=== PATIENT | male | born 1965 | race African-American/Black ===

== ENCOUNTER 2018-01-30 12:10 | Emergency (ER) | payer MEDICAID ==
[2018-01-30] MEDS: DIPHTH,PERTUSS(ACELL),TET TOX 0.5 ML DISP.SYRIN. VAX IM (14:00)
[2018-01-30] MEDS: LIDOCAINE WITH 8.4% SOD BICARB 3 ML DISP.SYRIN. INJ (14:00)
== END 2018-01-30 15:23 | disposition home or self-care (01) ==
LOC: ER 12:10
DX: S61.213A Laceration without foreign body of left middle finger without damage to nail, initial encounter (principal); W45.8XXA Other foreign body or object entering through skin, initial encounter; Y93.89 Activity, other specified; Y99.8 Other external cause status; Y92.89 Other specified places as the place of occurrence of the external cause
CPT/HCPCS: 12001; 90471; 90715; 99283-25